=== PATIENT | female | born 1980 | race Caucasian/White ===

== ENCOUNTER 2023-10-19 18:09 | Emergency (ER) | payer BC, SELFPAY ==
--- NOTE | ~2023-10-19 | XR_ITS ---
EXAMINATION: XR KNEE, RIGHT CLINICAL INFORMATION: Atraumatic right knee pain, history of T-cell lymphoma COMPARISON: None available. TECHNIQUE: Four views of the right knee. FINDINGS: No fracture or joint effusion. Alignment is anatomic. Joint spaces are maintained. No abnormal soft tissue calcification. XR/XR knee RT 3V IMPRESSION: Normal right knee.
[2023-10-19 18:22] VITALS: BP 155/63; PULSE 77; RESP 18; TEMP 36.8; O2SAT 98; BMI 23.2
--- NOTE | 2023-10-19 18:22 | ED_ITS ---
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 Patient states that on Saturday10/15/2023 (5 days prior to evaluation) she developed pain in her right knee. She states the pain is gotten progressively worse in her right knee is swollen. She denies any known injury. She denied fever, chills, rhinorrhea, sore throat or cough. She was seen at urgent care and given her past medical history is referred to the emergency department for further evaluation. Patient states that in September 2023 she noted changes in her glucose of her mouth and tongue and was seen by a dentist recently who started her on medications for thrush. She states the mouth lesions have improved but not resolved completely enter dentist wants to refer her to an oral surgeon for possible biopsy if her symptoms do not completely resolved. She is also noted a pruritic rash that is a red patch to her right lateral aspect of her abdomen but has not had any other rash or lesions outside of her cutaneous T-cell lymphoma lesions. Related Data Previous Rx's Medication Instructions Recorded oxycodone 5 mg tablet 5 mg PO Q6H PRN pain #10 tabs 10/19/23 prednisone 10 mg tablet 10 mg PO DIRECTED #60 tabs 10/19/23 Allergies Allergy/AdvReac Type Severity Reaction Status Date / Time amoxicillin [AMOXICILLIN] Allergy Unknown UNKNOWN Verified 10/19/23 18:22 Review of Systems 2 Review of Systems: Yes all other systems are reviewed and are negative [facility] Past Medical History [facility] Narrative: Past medical history: Cutaneous T-cell lymphoma treated with oral chemotherapy daily, she also has to take levothyroxine secondary to the chemotherapy drug. Social history: She denies tobacco use. She rarely drinks alcohol. She did have alcohol to drink yesterday. She denies drug use. Onset Date is defined in the Problem List Problems that require an onset date and time if occurred within 24 hrs of arrival to the ED Aortic Dissection and Rupture; Neurologic impairment; Cardiopulmonary Arrest; Endotracheal Intubation; Insertion or Replacement of Mechanical Circulatory Assist Device Social History Social History Advance Directives: No Advance Directives Information Provided: No Physical Exam ED Vital Signs: Vital Signs - 24 hr 10/19/23 18:22 Temperature 98.2 F Pulse Rate 77 Respiratory Rate 18 Blood Pressure 155/63 H Pulse Oximetry 98 Oxygen Delivery Method Room Air BMI result Body Mass Index 23.2 Vital signs did reveal an elevated blood pressure of 155/63 otherwise unremarkable. Exam: General: Awake, alert in no distress Head: Normocephalic, atraumatic EENT: PERRL, Lids normal, sclera normal, conjunctiva normal, nose normal , ears normal, throat without erythema or exudates, mouth patient does have a white patch on her tongue by do not see any lesions on her posterior pharynx or buccal mucosa that look like thrush Neck: Supple, no adenopathy, no trachea midline or C-spine tenderness Lung: breath sounds symmetric, no wheezing, rales or rhonchi Heart: regular rate and rhythm, normal S1, S2 no murmurs or rubs Abdomen: soft, non-tender, nondistended, normal bowel sounds Extremities: Patient does have a small right knee joint effusion with no increased warmth or erythema over the knee. Patient does have full flexion- extension but does have pain with movement of her right knee. The left knee is normal. Skin: Patient has a small patch of raised erythema to the right lower abdomen with no other rash noted in the abdomen or back, this is nonblanching. Patient does have some other white patches on her skin which she states are consistent with her cutaneous T-cell lymphoma. Neuro: Awake, alert, oriented, normal speech,moves all extremities symmetrically Psych: Very pleasant, cooperative Course Course Course Narrative: This is an RME: Additional HPI, ROS, PE not included below will be deferred to primary provider. This is a [id number], with a hx of cutaneous t cell lymphoma, presenting to the ER with complaints of atraumatic right knee x 3 days. Patient was previously seen at an urgent care, and given no access to x-rays as well as laboratories given history she was sent here for further workup. Patient also states that since Jacklyn she has battling a mouth like infection, dentist treating for what they think is thrush however symptoms have not completely resolved despite using medication. She is followed by [facility] for her T- cell cutaneous lymphoma. Plan: Labs, x-ray Medications Administered Discontinued Medications Generic Name Dose Route Start Last Admin Trade Name Lane PRN Reason Stop Dose Admin Prednisone 60 mg 10/19/23 21:11 10/19/23 21:21 Prednisone 20 Mg Tablet PO 10/19/23 21:12 60 mg ONCE ONE Administration Medical Decision Making Medical Decision Making [facility] Narrative: 43-year-old female with a history of cutaneous T-cell lymphoma x6 years treated with oral chemotherapy who presents emergency department for evaluation of 5 days of right knee pain which is got progressively worse. She was seen at an urgent care clinic today and noted to have a joint effusion and referred to the emergency department for evaluation given her history. Patient also has oral lesions which her dentist is treating as thrush with nystatin orally-some improvement lesions but no complete resolution. Patient also has a small erythematous patch to her right lower abdomen which is pruritic. Physical examination did reveal a small right knee joint effusion but no evidence for infection such as erythema or increased warmth. Following evaluation was ordered: CBC, BMP, uric acid, ESR, CRP 21:39 My interpretation patient's laboratory evaluation is follows: CBC was normal with a normal WBC and a normal differential. BMP was normal. Uric acid was normal. ESR and CRP were normal. At this time, I believe the patient has an inflammatory process but I do not think that she has an infectious process. Patient has been taking ibuprofen with no relief of her symptoms. Patient was started prednisone 60 mg once a day for 5 days decrease by 1 pill every 2 days for total of a 14 day tapering course. Patient was also advised to take Tylenol. For pain not relieved by prednisone and Tylenol she was prescribed oxycodone. Patient was also given crutches to help relieve the pressure on her knee. She is instructed to follow-up with the orthopedic providers if she has not better in 1-2 weeks. Differential Diagnosis Differential Diagnoses: The differential diagnosis associated with the presentation includes Differential diagnosis includes was not limited to inflammatory arthritis, infectious arthritis, joint injury, gout Admission/Observation Consideration of admission/observation: Escalation of care including admission/observation considered Lab Data [facility] Lab Attestation statement: I reviewed the patient's lab results. 10/19/23 18:37 10/19/23 18:36 Labs: Lab Results 10/19/23 10/19/23 Range/Units 18:36 18:37 WBC 6.1 (4.8-10.8) X10*3/uL RBC 4.62 (4.20-5.50) X10*6/uL Hgb 13.4 (12.0-16.0) g/dl Hct 40.6 (37.0-47.0) % MCV 87.9 (80.0-98.0) fL MCH 29.0 (27.0-33.0) pg MCHC 33.0 (31.0-35.0) g/dl RDW 12.9 (11.0-16.0) % Plt Count 197 (160-400) X10*3/uL MPV 9.7 (9.4-12.3) fL Immature Gran % (Auto) 0.2 (0.0-0.4) % Neut % (Auto) 55.4 (45-73) % Lymph % (Auto) 33.9 (20-40) % Brantley % (Auto) 8.4 (2-11) % Eos % (Auto) 1.8 (0-4) % Baso % (Auto) 0.3 (0-2) % Lymph # (Auto) 2.1 (1.2-4.9) X10*3/uL Brantley # (Auto) 0.5 (0.1-1.2) X10*3/uL Eos # (Auto) 0.1 (0.0-0.4) X10*3/uL Baso # (Auto) 0.0 (0.0-0.2) X10*3/uL Abs Immat Gran (auto) 0.01 (0.00-0.03) X10*3/uL Absolute Neuts (auto) 3.4 (2.0-8.3) x10*3/uL Absolute Nucleated RBC 0.000 (0.0-0.012) X10*3/uL Nucleated RBC % (auto) 0.0 (0.0-0.2) /100WBC ESR 7 (0-20) MM/HR Sodium 137 (135-145) mmol/L Potassium 3.4 (3.3-5.1) mmol/L Chloride 105 (96-108) mmol/L Carbon Dioxide 22 (22-29) mmol/L Anion Gap 13 (12-20) BUN 11 (9-16) mg/dL Creatinine 0.99 (0.5-1.4) mg/dL Estim Creat Clear Calc 77.4 Estimated GFR > 60 Random Glucose 86 (60-115) mg/dL Uric Acid 3.0 (2.4-5.7) mg/dL Calcium 9.5 (8.4-10.2) mg/dL C-Reactive Protein 0.12 (< or = 0.50) mg/dL Independent Interpretation I performed an independent interpretation of an: Plain X-Ray Interpretation: My interpretation patient's x-rays are as follows: No acute process, normal joint Radiology Impression Discussion of test interpretation with radiology: I have reviewed the radiologist's reading. Radiologist Impression: XR knee RT 3V IMPRESSION: Normal right knee. Dictated By: Hugo Veronica MD Independent Historian Clinical information obtained from an independent historian. History obtained from or confirmed by: Friend Chronic Conditions Patient?s care impacted by: Other Cutaneous T-cell lymphoma Discharge Plan Discharge Clinical Impression: Inflammation of joint of right knee Patient Disposition: Home, Self-Care Additional Instructions: Your blood work was normal including a normal white blood cell count, ESR and CRP-these are inflammatory markers Your uric acid was also normal making gout less likely as the cause of your inflammation of your knee joint. Your exam does reveal a small knee effusion but I do not think that you have an infection at this time based on your exam and based on your normal inflammatory markers. Use the crutches to reduce the amount of weight that she put on your right knee for 1 week. Keep your knee elevated in use ice for 15 minutes 4 times a day for the next 2-3 days to help reduce the inflammation. Take prednisone 20 mg pills, 3 pills once a day for 5 days. While you ?are taking prednisone, do not take any NSAIDs (Motrin, Advil, ibuprofen, Aleve, naproxen). Take Tylenol (acetaminophen) 500 mg pills, 2 pills every 4-6 hours as needed for pain. For pain not relieved by prednisone or Tylenol take oxycodone 5 mg pills, 1 pill every 4 hours as needed for pain. Do not drive or work while taking this medication since they can cause sleepiness. Oxycodone is a narcotic medication that can be addicting. If you are concerned about addiction you can ask the pharmacist for less pills or do not get this prescription filled. Follow your dentist instructions regarding your mouth issues Follow-up with our orthopedic doctor in 1-2 weeks if you are not better Please return to the emergency department if your symptoms get worse or if you develop any symptoms that are concerning to you. Take prednisone 10 mg pills, 6 pills for 5 days then decrease by 1 pill every 2 days until you complete the prescription (day 1 through 5 take 6 pills, day 6 and 7 take 5 pills, day 8 and 9 take 4 pills, day 9 in 10 take 3 pills, day 11 and 12 take 2 pills day 13 and 14 take 1 pill) Prescriptions: New oxycodone 5 mg tablet 5 mg PO Q6H PRN (Reason: pain) Qty: 10 0RF Rx Instructions: Patient may request partial refill; Partial Fill upon patient request. prednisone 10 mg tablet 10 mg PO DIRECTED Qty: 60 0RF Rx Instructions: Day 1 through 5 take 6 pills then decrease by 1 pill every 2 days until you complete prescription Referrals: Walter Odom MD [Physician] - 2 weeks (Right knee effusion)
[2023-10-19 18:42] LABS: MANUAL DIFF FLAG NO
[2023-10-19 18:44] LABS: Basophils Percent Auto 0.3 % (0-2); Eosinophils Absolute Auto 0.1 X10*3/uL (0.0-0.4); Eosinophils Percent Auto 1.8 % (0-4); Hematocrit 40.6 % (37.0-47.0); Hemoglobin 13.4 g/dl (12.0-16.0); Imm Gran Abs Auto 0.01 X10*3/uL (0.00-0.03); Imm Gran Pct Auto 0.2 % (0.0-0.4); Lymphocytes Absolute Auto 2.1 X10*3/uL (1.2-4.9); Lymphocytes Percent Auto 33.9 % (20-40); Mean Corpuscular Volume 87.9 fL (80.0-98.0); Mean Platelet Volume 9.7 fL (9.4-12.3); Monocytes Absolute Auto 0.5 X10*3/uL (0.1-1.2); Monocytes Percent Auto 8.4 % (2-11); Neutrophils Absolute Auto 3.4 x10*3/uL (2.0-8.3); Neutrophils Percent Auto 55.4 % (45-73); Platelet Count 197 X10*3/uL (160-400); Red Blood Count 4.62 X10*6/uL (4.20-5.50); Red Cell Distribution Width 12.9 % (11.0-16.0); White Blood Count 6.1 X10*3/uL (4.8-10.8)
[2023-10-19 18:58] LABS: Anion Gap 13 (12-20); Blood Urea Nitrogen 11 mg/dL (9-16); C Reactive Protein 0.12 mg/dL (< or = 0.50); Calcium 9.5 mg/dL (8.4-10.2); Carbon Dioxide 22 mmol/L (22-29); Chloride 105 mmol/L (96-108); Creatinine Clr Calc Pharmacy 77.4; Estimated Glomerular Filt Rate > 60; Glucose Random 86 mg/dL (60-115); Potassium 3.4 mmol/L (3.3-5.1); Sodium 137 mmol/L (135-145)
[2023-10-19 19:23] LABS: Erythrocyte Sedimentation Rate 7 MM/HR (0-20)
[2023-10-19] MEDS: predniSONE 20 MG TABLET 60 MG PO (21:21)
== END 2023-10-19 21:57 | disposition home or self-care (01) ==
PROVIDERS: Physician Assistant Medical; Emergency Provider Emergency Medicine Emergency Medical Services
DX: M25.461 Effusion, right knee (principal); M25.561 Pain in right knee
CPT/HCPCS: 36415; 73562; 80048; 84550; 85025; 85652; 86140; 99282; 99283

== ENCOUNTER 2023-10-31 12:57 | Outpatient (AMB) | payer BC, SELFPAY ==
[2023-10-31 12:58] VITALS: BMI 23.2
--- NOTE | 2023-10-31 12:58 | A.OFFVIS_ITS ---
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 Patient reports that she has had pain in the right knee for about 2 weeks now. Denies injury. She went to stand pu and felt a sharp pain on the lateral aspet of the knee. The pain was followed by swelling and continued pain. She has taken prednisone which has been helpful with her swelling. She feels that the knee is unstable when trying to bear weight. She is wearing a brace that she finds helpful. 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 She went to stand on ~10/19/23 when she felt a sharp pain in the lateral aspect of her knee, followed by swelling. She has pain with daily activity and feels unstable with WB. She was seen in the ED on 10/19/23 following this injury and given a course of prednisone and a knee brace, which have been helpful. [facility] Social History (Updated 10/31/23 @ 13:02 by Alicia Ramos CMA) Patient Tobacco Use Status: Never used Tobacco Current occupational status: employed Current occupation: Psychotherapist Review of Systems Const All systems reviewed & are unremarkable except as noted in HPI and below Physical Exam Vital Signs: BMI result Body Mass Index 23.2 Const General: no acute distress, alert and awake Orientation/consciousness: patient oriented x3 HEENT Head: Yes normocephalic and Yes atraumatic Eyes EOM: EOMs intact bilaterally Resp Effort & Inspection: normal respiratory effort and able to speak in complete sentences Cardio Jugular venous distension: no JVD Skin General skin exam: turgor normal Rashes: no rashes Neuro General: patient oriented x3 Extrem Other: Right knee 1+ effusion Stable to v/v stress neg anjana's + medial Steinmen's ( mild) TTP over quad insertion Can SLR Psych Appearance: grossly normal Affect: normal affect Attitude: cooperative Results Reviewed Results Reviewed: I personally reviewed relevant radiographs. Nl rightk nee radiographs Assessment & Plan Assessment & Plan (1) Knee effusion, right: Code(s): M25.461 - Effusion, right knee Plan: Spontaneous effusion for one month On crutches and limited function MRI and PT for ROM Can bear weight with crutches as tolerated. Plan Prepared for Walter Odom MD by Karson Thomas, nuclear medicine medical director, on 10/31/23 at 1:06 PM, EST. Orders: Orders PT Evaluation and Treatment 10/31/23 M25.461 - Effusion, right knee MR knee RT wo con 10/31/23 M25.461 - Effusion, right knee Coding Level of Care Code New Pt Level 4 (71498) Diagnoses Knee effusion, right M25.461
== END 2023-10-31 13:25 | disposition home or self-care (01) ==
PROVIDERS: Visit Provider Orthopaedic Surgery
DX: M25.461 Effusion, right knee (principal)
CPT/HCPCS: 99203

== ENCOUNTER → 2023-10-31 12:57 | Outpatient (BNVA) | payer BC, SELFPAY | PROVIDERS: Visit Provider Orthopaedic Surgery ==

== ENCOUNTER 2023-11-01 16:00 | Outpatient (REF) | payer BC, SELFPAY ==
--- NOTE | ~2023-11-01 | MR_ITS ---
EXAMINATION: MR KNEE WITHOUT CONTRAST, RIGHT CLINICAL INFORMATION: Right knee effusion. Pain and swelling. COMPARISON: None available. TECHNIQUE: MRI of the knee without contrast was performed using routine sequences on a high-field scanner. FINDINGS: MENISCI: Medial Meniscus: Intact Lateral Meniscus: Intact LIGAMENTS: Cruciate: Intact Collateral: Intact EXTENSOR MECHANISM: Intact ARTICULAR CARTILAGE/BONE: Patellofemoral Compartment: No significant cartilage loss Medial Compartment: No significant cartilage loss Lateral Compartment: No significant cartilage loss No fracture. No aggressive marrow replacing lesion. JOINT FLUID AND BURSAE: Small effusion. Tiny Lyons's cyst. MR/MR knee RT wo con IMPRESSION: 1. Menisci appear intact without evidence of discrete tear. 2. Cruciate and collateral ligaments appear intact. 3. Small effusion.
== END 2023-11-01 16:01 | disposition home or self-care (01) ==
LOC: HO.MRI 16:00
PROVIDERS: Visit Provider Orthopaedic Surgery
DX: M25.461 Effusion, right knee (principal)
CPT/HCPCS: 73721

== ENCOUNTER 2023-11-08 09:51 | Outpatient (AMB) | payer BC, SELFPAY ==
--- NOTE | 2023-11-08 09:52 | A.OFFVIS_ITS ---
Intake Intake Visit Reasons: TEL-Video chat MRI review right knee Intake Note: Ange is a 43 year old female who presents today VIA Telephone for an MRI folloe up of her right knee. At the beginning of October she felt a pop in the knee and has had pain since. Allergies amoxicillin [AMOXICILLIN] Allergy (Unknown, Verified 11/08/23 09:54) UNKNOWN HPI TEL-Video chat MRI review right knee HPI Details Ange is a 43 year old woman who presents for a telehealth appointment MRI review of her right knee pain. She went to stand on ~10/19/23 when she felt a sharp pain in the lateral aspect of her knee, followed by swelling. She has pain with daily activity and feels unstable with WB. She is feeling better today. Still with some fullness but minimal pain. [facility] Social History (Updated 10/31/23 @ 13:02 by Alicia Ramos [facility]) Patient Tobacco Use Status: Never used Tobacco Current occupational status: employed Current occupation: Psychotherapist Review of Systems Const All systems reviewed & are unremarkable except as noted in HPI and below Physical Exam Const General: no acute distress, alert and awake Orientation/consciousness: patient oriented x3 Resp Effort & Inspection: normal respiratory effort and able to speak in complete sentences Neuro General: patient oriented x3 Psych Appearance: grossly normal Affect: normal affect Attitude: cooperative Results Reviewed Results Reviewed: I personally reviewed the MR images. 1. Menisci appear intact without evidence of discrete tear. 2. Cruciate and collateral ligaments appear intact. 3. Small effusion. Assessment & Plan Assessment & Plan (1) Knee effusion, right: Code(s): M25.461 - Effusion, right knee Plan: Unremarkable MRI and patient feeling well. Reassured her. f/u PRN Plan Prepared for Walter Odom MD by Karson Thomas medical manager, on 11/08/23 at 9:55 AM, EST. Telehealth Telehealth Location of provider rendering services: practice address Location of patient: address on file Patient Identification confirmed using: Name, : Yes Telehealth method: video Patient verbally consented to treatment: Yes Patient verbally consented to billing insurance company: Yes Patient informed of any privacy concerns related to visit: Yes Minutes spent on Phone/Video with Pt.: 10 Coding Level of Care Code Tele Est Pt Level 3 (28329) Diagnoses Knee effusion, right M25.461
== END 2023-11-08 10:30 | disposition home or self-care (01) ==
PROVIDERS: Visit Provider Orthopaedic Surgery
DX: M25.461 Effusion, right knee (principal)
CPT/HCPCS: 99213

== ENCOUNTER → 2023-11-08 09:51 | Outpatient (BNVA) | payer BC, SELFPAY | PROVIDERS: Visit Provider Orthopaedic Surgery ==